=== PATIENT | male | born 1970 | race Caucasian/White ===

== ENCOUNTER 2020-11-05 23:47 | Emergency (ER) | payer OTHER ==
[~2020-11-05] VITALS: Ht 172.7 cm; Wt 79.5 kg
--- NOTE | 2020-11-06 00:38 | PHYS DOC ---
General Adult EDM: Chief Complaint: SEIZURE HPI: HPI: Patient is a 49 year old male who presents to the emergency department with head trauma. Patient does not recall the events that happened but chief medical technologist at the [facility] and bunk mate state that patient had seizure-like activity and fell from the top bunk. Patient has no known history of seizure activity and is oriented to person and time but not place. Patient states that his head and neck hurt but he is not have any other complaints. Review of Systems: Review of Systems: Review of systems: Constitutional symptoms- No fever, no chills. Eyes- No Discharge, No Visual Loss Respiratory symptoms- No shortness of breath, No wheezing, No Dyspnea on Exertion Cardiovascular Systems; No chest pain, No Palpitations, No syncope Gastrointestinal symptoms: NO abdominal pain, no nausea, no vomiting or diarrhea. Genitourinary symptoms: No dysuria. Musculoskeletal symptoms: No back pain No extremity pain. NEUROLOGICAL Symptoms: Positive headache, no generalized weakness; No focal Weakness Heart Score: C/O Chest Pain: N/A Risk Factors: Risk Factors: DM, Current or recent (<one month) smoker, HTN, HLP, family history of CAD, obesity. Risk Scores: Score 0 - 3: 2.5% MACE over next 6 weeks - Discharge Home Score 4 - 6: 20.3% MACE over next 6 weeks - Admit for Clinical Observation Score 7 - 10: 72.7% MACE over next 6 weeks - Early Invasive Strategies Allergies: Allergies: Allergies Coded Allergies Type Severity Reaction Last Updated Verified No Known Drug Allergies 11/06/20 No Physical Exam: PE: General: alert, no acute distress. Skin: warm, dry and intact. Head:: Normocephalic, nodule on occiput, laceration left eyebrow. Neck: Trachea midline. Eyes: EOMI, Normal conjunctiva, No drainage CARDIOVASCULAR: Regular rate and rhythm RESPIRATORY: No respiratory distress Back: Full range of motion. MUSCULOSKELETAL: Full range of motion of bilateral upper and lower extremities. GASTROINTESTINAL: Abdomen soft without rebound or guarding. NEUROLOGICAL: Alert and noted to person and time but not place. No neurological deficits observed Psychiatric: Cooperative. Normal judgment EKG: EKG: [] Radiology/Procedures: Radiology/Procedures: [] Impression: CT imaging no acute traumatic injury Course & Med Decision Making: Course & Med Decision Making Pertinent Labs and Imaging studies reviewed. (See chart for details) []IMPRESSION: CT HEAD: 1. No acute intracranial abnormality by CT. 2. Contusion/laceration at the lower aspect of the left frontal scalp without an associated depressed calvarial fracture. CT MAXILLOFACIAL: 1. No acute facial bone fracture or TMJ malalignment. 2. Soft tissue injury mainly at the left preseptal orbit. No evidence for postseptal injury. 3. Ostiomeatal unit pattern of obstruction on the left with background findings of chronic maxillary sinusitis. Consider nonemergent ENT consultation. CT CERVICAL SPINE: 1. No acute fracture or traumatic malalignment. 2. Multilevel spondylosis superimposed on an intrinsically narrowed canal. There appears to be at least moderate central canal stenosis at several levels but incompletely characterized by technique. Was evaluated for chief complaint. Work-up consisted of radiologic imaging-no acute traumatic injury. Procedure- Laceration 4 cm left facial above left eyelid. Wound was cleaned to a bloodless field Was achieved with LET 5 simple interrupted sutures 6.0 nylon placed no complications Dragon Disclaimer: Harish Disclaimer: This electronic medical record was generated, in whole or in part, using a voice recognition dictation system. Departure Departure Impression: Primary Impression: Fall Additional Impressions: Head injury Facial laceration Cervical strain Disposition: HOME / SELF CARE / HOMELESS Condition: STABLE Referrals: NO PCP (PCP) Patient Instructions: Cervical Strain and Sprain with Rehab[facility], Facial Laceration, Head Injury, Adult ЕЛЕНА MOORE DO Nov 06, 2020 00:38
[2020-11-06] MEDS: MORPHINE SULFATE 2 MG/ML VIAL. IV ONE (01:20)
--- NOTE | 2020-11-06 01:24 | RAD ---
STUDY: 1. CT head without contrast 2. CT maxillofacial without contrast 3. CT cervical spine without contrast INDICATION: Head trauma. COMPARISON: None. TECHNIQUE: Axial CT imaging of the head, maxillofacial structures and cervical spine performed withou t the use of intravenous contrast. Sagittal and coronal reformats were obtained. One or more of the following individualized dose reduction techniques were utilized for this examinat ion: 1. Automated exposure control 2. Adjustment of the mA and/or kV according to patient size 3. Use of iterative reconstruction technique. FINDINGS: CT HEAD: No acute intracranial hemorrhage. No mass effect, midline shift or hydrocephalus. Crescentic hypoatte nuation along the periphery of the right cerebellar hemisphere is not typical of trauma and may be de velopmental. Ernst-white matter differentiation is maintained. Lower left frontal scalp contusion/laceration extending downward along the orbit. Mild asymmetric pro minence of the scalp at the posterior left parietal region, image 28 series 2, could represent an add itional site of contusion but is less definitively on account of trauma. No depressed calvarial fract ure. CT MAXILLOFACIAL: No acute facial bone fracture. Temporomandibular joint alignment is maintained. Left preseptal contusion. No CT evidence for injury to the globes. No retrobulbar hematoma. Complete opacification of the left maxillary sinus with associated mucoperiosteal thickening. Chronic dehiscence along the medial wall of the left maxillary sinus. Opacified left frontal sinus and anter ior ethmoidal air cells. Mild mucosal thickening of the right maxillary sinus. Normally aerated masto id air cells and middle ears. CT CERVICAL SPINE: No acute fracture or traumatic malalignment. Intrinsically narrowed cervical central canal with superimposed spondylosis accentuating the degree o f central canal narrowing. Stenosis is favored greatest at C4-C5 the setting of a disc osteophyte com plex with a superimposed central/left paracentral protrusion/extrusion. No soft tissue sequela of trauma seen throughout the neck. Emphysematous changes at the apices. IMPRESSION: CT HEAD: 1. No acute intracranial abnormality by CT. 2. Contusion/laceration at the lower aspect of the left frontal scalp without an associated depresse d calvarial fracture. CT MAXILLOFACIAL: 1. No acute facial bone fracture or TMJ malalignment. 2. Soft tissue injury mainly at the left preseptal orbit. No evidence for postseptal injury. 3. Ostiomeatal unit pattern of obstruction on the left with background findings of chronic maxillary sinusitis. Consider nonemergent ENT consultation. CT CERVICAL SPINE: 1. No acute fracture or traumatic malalignment. 2. Multilevel spondylosis superimposed on an intrinsically narrowed canal. There appears to be at le ast moderate central canal stenosis at several levels but incompletely characterized by technique. Electronically signed by: BEN EDMONDSON MD (11/06/2020 1:22 AM) [facility]
[2020-11-06] MEDS: LIDOCAINE/EPI/TETRACAINE TOPICAL GEL 3 ML. TP ONE (01:55)
[2020-11-06 03:41] VITALS: BP 109/66
== END 2020-11-06 03:06 | disposition home or self-care (01) ==
LOC: ER 23:47 → EEVIPCON 23:47 → ER 11-06 03:06
DX: S01.81XA Laceration without foreign body of other part of head, initial encounter (principal); S16.1XXA Strain of muscle, fascia and tendon at neck level, initial encounter; R56.9 Unspecified convulsions; W06.XXXA Fall from bed, initial encounter; Y93.89 Activity, other specified; Y92.89 Other specified places as the place of occurrence of the external cause; Y99.8 Other external cause status
CPT/HCPCS: 12013; 70450; 70486; 72125; 96374; 99285; J2270